=== PATIENT | female | born 1995 | race Caucasian/White ===

== ENCOUNTER 2016-09-20 09:45 | Emergency (ER) | payer OTHER ==
[2016-09-20 10:08] VITALS: BP 108/60
--- NOTE | 2016-09-20 10:31 | UC ---
Preet Curtis Adam, scribed for Tyler Peralta MD on 09/20/16 at 0951 . Skin Complaint HPI - HPI Summary HPI Summary: In Room Note: Pt is a 21 year old female presenting with a diffuse rash which she believes is a reaction to a new product. She states that she used a new perfume yesterday and she also wore a new sweater yesterday (over a tank top). She presents with multiple lesions on her back and arms which are red and raised. She states that they are very itchy. Yesterday she had the lesions on her hands as well. Pt also c/o a painful brown spot on her lip yesterday. She also c/o cough. As far as PMHx, pt states that when she was a baby she had a balloon put in her lung. EMR indicates hx of multiple allergies. Positive tobacco use. Note: Vital signs stable, not hypertensive. Pulse ox 97. Smoker. Visit history non-contributory to current complaint. PMHx of exercise-induced asthma and multiple allergies. Nurse's Note: Pt states that yesterday she put on new wool sweater and new perfume and then broke out in rash throughout entire body. Pt also complains of brown spot on lip that is causing her pain. - History of Current Complaint Stated Complaint: RASH Hx Obtained From: Patient Hx Last Menstrual Period: 2 WEEKS AGO Onset/Duration: Sudden Onset, Lasting Days, Still Present Timing: Constant Onset Severity: Moderate Current Severity: Mild Location: Diffuse Character: Pruritus, Redness, Raised Aggravating: Nothing Alleviating: Nothing Associated Signs & Symptoms: Positive: Cough Related History: Other: - Possible reaction to new wool sweater and/or new perfume - Allergy/Home Medications Allergies/Adverse Reactions: Allergies Allergy/AdvReac Type Severity Reaction Status Date / Time Naproxen Allergy Severe Hives Verified 11/12/15 16:01 Acetaminophen Allergy Shortness Verified 09/20/16 10:00 of Breath Apple Allergy Anaphylatic Verified 09/20/16 10:00 Shock Pineapple Allergy Hives Verified 11/12/15 16:01 bee stings Allergy Swelling Uncoded 04/15/14 14:05 lactose Allergy GI Upset Uncoded 09/13/15 07:56 oranges Allergy Blisters Uncoded 09/13/15 07:56 Home Medications: Home Medications Ibuprofen [Advil] 600 mg PO DAILY PRN 09/20/16 [History Confirmed 09/20/16] Review of Systems Constitutional: Negative Skin: Other - Red lesions on back and arms, brown spot on lip Respiratory: Cough All Other Systems Reviewed And Are Negative: Yes PMH/Surg Hx/FS Hx/Imm Hx - Surgical History Surgical History: Yes Surgery Procedure, Year, and Place: ear tubes. states "balloon placed in LEFT lung as baby" - Family History Known Family History: Positive: Hypertension - Grandmother, Diabetes - Grandmother - Social History Occupation: Unemployed Lives: With Family - Mother Alcohol Use: None Substance Use Type: None Smoking Status (MU): Current Every Day Smoker Type: Cigarettes Amount Used/How Often: 1/2 PPD - Immunization History Vaccination Up to Date: Yes Physical Exam Triage Information Reviewed: Yes Vital Signs: Initial Vital Signs Temp 98.9 F 09/20/16 10:02 Pulse 86 09/20/16 10:02 Resp 14 09/20/16 10:02 BP 108/60 09/20/16 10:02 Pulse Ox 97 09/20/16 10:02 - Additional Comments Appearance: well-appearing, no pain distress, well-nourished Eyes: Conjunctiva clear ENT: Hearing grossly normal, pharynx normal, TMs normal, (-) muffled/hoarse voice. The throat is open. Neck: Supple, no lymphadenopathy. There are no swollen glands in the cervical area or the epitrochlear area. Resp: Chest non-tender, lungs clear, normal breath sounds, no respiratory distress Cardio: RRR, No murmur Abd: nontender, no organomegaly, soft Bowel: Present Musc: Strength intact, CARRION Neuro: Alert Psych: Age appropriate behavior Skin: SCATTERED 1-2 MM ERYTHEMATOUS RAISED PUNCTATE LESIONS. THERE ARE APPROXIMATELY 8 ON THE BACK AND SCATTERED ON THE ARMS. There is no rash noted between the fingers. THERE IS ALSO A RESOLVING DISCOLORED AREA ON THE RIGHT SIDE OF THE UPPER LIP THAT DOES NOT GO INTO THE MUCOSA. There is no swelling of the tongue. Course/Dx - Course Course Of Treatment: Medications have been included in the original chart and reviewed. Normal BP reading and no follow-up instructions required. - Diagnoses Provider Diagnoses: Scabies, possible contact dermatitis Discharge - Discharge Plan Condition: Stable Disposition: HOME Patient Education Materials: Scabies (ED), Contact Dermatitis (ED) Forms: *Work Release Referrals: Denisse Blanchard MD [Primary Care Provider] - Additional Instructions: Thank you for helping us improve patient care by filling out the [facility]. WE DISCUSSED: See instructions; wash all clothes in contact with you over the past few days and your sheets. Go to drugstore for over the counter scabies medication. It's called permethrin. Use as directed. Use it again in one week. Also hydrocortisone. Apply to any itching red dots. Recheck if you are not better in 2 weeks. If you no longer itch and have no rash, you can return to work in 2 days. The documentation as recorded by the Preet rutherford Adam accurately reflects the service I personally performed and the decisions made by me, Tyler Peralta MD.
== END 2016-09-20 10:36 | disposition home or self-care (01) ==
LOC: UCEAST 09:45
DX: B86 Scabies (principal); Z88.6 Allergy status to analgesic agent; Z91.030 Bee allergy status; Z91.011 Allergy to milk products; F17.210 Nicotine dependence, cigarettes, uncomplicated
CPT/HCPCS: 99211; G0463

== ENCOUNTER 2017-01-29 11:36 | Emergency (ER) | payer SELFPAY ==
--- NOTE | 2017-01-29 12:21 | UC ---
Back Pain HPI - HPI Summary HPI Summary: 21 y/o female presents to the urgent care c/o RT sided lower back pain that started yesterday when she woke up. Pt states pain is 8/10 radiates up her back and down her RT leg. Pt Denies any injury or trauma to her back. Denies numbness or tingling over the lower extremities, urinary or fecal incontinence , saddle anesthesia, SOB, chest pain, N/V/D. LMP: 01/27/2017 with regular menstrual cycles. - History of Current Complaint Hx Obtained From: Patient Hx Last Menstrual Period: 01/27/17 ?: No Onset/Duration: Gradual Onset, Lasting Days - 1 day, Still Present Timing: Constant Severity Initially: Mild Severity Currently: Moderate Pain Intensity: 8 Pain Scale Used: 0-10 Numeric Back Pain: Is Discrete @ - RT lower back Character: Spasmodic Aggravating: Bending, Walking Alleviating: Rest Associated Signs And Symptoms: Positive: Pain with Weight Bearing. Negative: Swelling, Redness, Fever, Numbness, Tingling, Flank Pain, Bladder Incontinence, Bowel Incontinence - Risk Factors AAA Risk Factors: Negative TAD Risk Factors: Negative Cauda Equina Risk Factors: Negative Epidural Abscess Risk Factors: Negative <Lynn Perry - Last Filed: 01/30/17 21:45> <Tyler Peralta - Last Filed: 01/31/17 06:58> - History of Current Complaint Chief Complaint: UCBackPain Stated Complaint: BACK PAIN Time Seen by Provider: 01/29/17 12:19 - Allergies/Home Medications Allergies/Adverse Reactions: Allergies Allergy/AdvReac Type Severity Reaction Status Date / Time Naproxen Allergy Severe Hives Verified 01/29/17 13:19 Acetaminophen Allergy Shortness Verified 01/29/17 13:19 of Breath Apple Allergy Anaphylatic Verified 01/29/17 13:19 Shock Penicillins Allergy Rash Verified 01/29/17 13:19 Pineapple Allergy Hives Verified 01/29/17 13:19 bee stings Allergy Swelling Uncoded 01/29/17 13:19 lactose Allergy GI Upset Uncoded 01/29/17 13:19 oranges Allergy Blisters Uncoded 01/29/17 13:19 PMH/Surg Hx/FS Hx/Imm Hx Previously Healthy: Yes Respiratory History: Asthma - Surgical History Surgical History: Yes Surgery Procedure, Year, and Place: ear tubes. states "balloon placed in LEFT lung as baby" - Family History Known Family History: Positive: None, Hypertension - Grandmother, Diabetes - Grandmother - Social History Occupation: Student Lives: With Family Alcohol Use: None Substance Use Type: None Smoking Status (MU): Heavy Every Day Tobacco Smoker Type: Cigarettes Amount Used/How Often: 1/2 PPD Length of Time of Smoking/Using Tobacco: started at age 15 Household Exposure Type: Cigarettes - Immunization History Vaccination Up to Date: Yes <Lynn Perry - Last Filed: 01/30/17 21:45> Review of Systems Constitutional: Negative Skin: Rash - RT lower back mole painful Eyes: Negative ENT: Negative Respiratory: Negative Cardiovascular: Negative Gastrointestinal: Negative Genitourinary: Negative Motor: Negative Neurovascular: Negative Musculoskeletal: Other: - RT side lower back pain Neurological: Negative Psychological: Negative Is Patient Immunocompromised?: Yes All Other Systems Reviewed And Are Negative: Yes <Lynn Perry - Last Filed: 01/30/17 21:45> Physical Exam Triage Information Reviewed: Yes Appearance: Well-Appearing, No Pain Distress, Well-Nourished, Thin Vital Signs: Initial Vital Signs Temp 98.7 F 01/29/17 11:42 Pulse 88 01/29/17 11:42 Resp 16 01/29/17 11:42 BP 106/71 01/29/17 11:42 Pulse Ox 100 01/29/17 11:42 Vital Signs Reviewed: Yes Eye Exam: Normal Eyes: Positive: Conjunctiva Clear - PERRLA, EOMI ENT Exam: Normal ENT: Positive: Normal ENT inspection, Hearing grossly normal, Pharynx normal, TMs normal Neck exam: Normal Neck: Positive: Supple, Nontender, No Lymphadenopathy Respiratory Exam: Normal Respiratory: Positive: Chest non-tender, Lungs clear, Normal breath sounds, No respiratory distress Cardiovascular Exam: Normal Cardiovascular: Positive: RRR, No Murmur, Pulses Normal, Brisk Capillary Refill Abdominal Exam: Normal Abdomen Description: Positive: Nontender, No Organomegaly, Soft. Negative: CVA Tenderness (R), CVA Tenderness (L) Bowel Sounds: Positive: Present Musculoskeletal: Positive: Strength Intact, Other: - BACK: Patient walked into the urgent care room with symmetric ambulation, No signs of limping, antalgic, able to bear weight. No signs of trauma, No masses palpated. No tendeness on palpation. Mild RT side paraspinal muscle tenderness at the level of L4-L5 No CVAT, no flank ecchymosis . No sacroiliac notch tenderness, No saddle anesthesia.ROM: limited flexion/ extension/ lateral bending and rotation due to pain, Straight Leg Raise: negative. Patellar reflexes: brisk, symmetric Muscle strength lower extremities. Dorsiflexion/ plantar flexion of ankles. Heel/ toe walk. Lower extremities: Femoral, popliteal, posterior tibial, and dorsalis pedis pulses WNL. Neurological Exam: Normal Psychological Exam: Normal Skin: Positive: rashes - RT side of lower back with a irregular mold with surrounding erythema and mild tenderness on palpation, mild scoriation observed. no swelling or discharge observed. Mold black-brown in color, sicae 0.4mm in size. <Lynn Perry - Last Filed: 01/30/17 21:45> Vital Signs: Initial Vital Signs Temp 98.7 F 01/29/17 11:42 Pulse 88 01/29/17 11:42 Resp 16 01/29/17 11:42 BP 106/71 01/29/17 11:42 Pulse Ox 100 01/29/17 11:42 <Tyler Peralta - Last Filed: 01/31/17 06:58> Back Pain Course/Dx - Course Course Of Treatment: 21 y/o female presents to the urgent care c/o RT sided lower back pain that started yesterday when she woke up. Pt states pain is 8/ 10 radiates up her back and down her RT leg. Pt Denies any injury or trauma to her back. Denies numbness or tingling over the lower extremities, urinary or fecal incontinence , saddle anesthesia, SOB, chest pain, N/V/D. LMP: 01/27/2017 with regular menstrual cycles. Hx obtained. Lubosacral X-ray ordered. Immpression: no bbone abnormality, mild levoscoliosis. Pt given ibuprofen 800mg PO at the clinic for pain. Pt felt better and pain decrease. Pt with back spasm probably due to scoliosis. Pt Rx Flexeril PO and Ibuprofen to alleviate symptoms. Pt with irregular mole co-infected. Pt Rx Bacitracin topical ointment and advise to f/u with podiatric aide as soon as possible for further treatment. D/C instructions explained. Pt understood and agreed and left the clinic ambulating - Differential Dx/Diagnosis Differential Diagnosis/HQI/PQRI: Fracture, Herniated Disc, Strain, Sprain, Other - scoliosis, muscle spasm, Provider Diagnoses: 1- Lower back pain with back spasm. 2- mild levoscoliosis. 3- rash <Lynn Perry - Last Filed: 01/30/17 21:45> Discharge <Lynn Perry - Last Filed: 01/30/17 21:45> <Tyler Peralta - Last Filed: 01/31/17 06:58> - Discharge Plan Condition: Stable Disposition: HOME Prescriptions: RX: Bacitracin OINTMENT* 1 applic TOPICAL TID #1 tube Cyclobenzaprine TAB* [Flexeril 10 MG TAB*] 10 mg PO BID PRN #15 tab PRN Reason: Spasms - Back RX: Ibuprofen TAB* [Motrin TAB* 800 MG] 800 mg PO Q6H #20 tab Patient Education Materials: Acute Rash (ED), Acute Low Back Pain (ED) Referrals: Denisse Blanchard MD [Primary Care Provider] - 7 Days Todd Vasuqes MD [Medical Doctor] - 1 Week Michael Stanford MD [Medical Doctor] - 1 Week Additional Instructions: 1-Please take medications after meals as directed to alleviate pain and swelling. Avoid driving if medication is making you dizzy 2-Please apply topical antibiotic aroun the infected mole and f/u Customer Program Specialist referral for further evaluation and treatment 3- Please f/u with Orthopedic or your PCP in 1 week is not improvement of symptoms of your lower back pain for further evaluation and treatment.
[2017-01-29] MEDS ORDERED: Ibuprofen TAB* 400 MG PO ONE (12:41)
--- NOTE | 2017-01-29 13:07 | RAD ---
Indication: Low back pain. 5 views of lumbar spine demonstrate vertebral bodies to be normal in height. Mild levoscoliosis centered at L4 is noted. Disc spaces are well-preserved. No fracture is noted. IMPRESSION: Mild levoscoliosis without evidence of fracture.
[2017-01-29 13:43] VITALS: BP 116/62
== END 2017-01-29 13:57 | disposition home or self-care (01) ==
LOC: UCEAST 11:36
DX: M62.830 Muscle spasm of back (principal); M41.80 Other forms of scoliosis, site unspecified; R21 Rash and other nonspecific skin eruption
CPT/HCPCS: 72100; 99212; A9270-GY; G0463

== ENCOUNTER 2017-05-19 15:32 | Emergency (ER) | payer SELFPAY ==
[2017-05-19 15:55] VITALS: BP 105/55
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
== END 2017-05-19 16:19 ==
LOC: UCEAST 15:32
DX: Z72.0 Tobacco use (principal); Z53.20 Procedure and treatment not carried out because of patient's decision for unspecified reasons; R51 Headache; S13.4XXA Sprain of ligaments of cervical spine, initial encounter; V49.88XA Car occupant (driver) (passenger) injured in other specified transport accidents, initial encounter; Y93.89 Activity, other specified; Y92.410 Unspecified street and highway as the place of occurrence of the external cause; Y99.9 Unspecified external cause status; R11.0 Nausea
CPT/HCPCS: 99211; G0463

== ENCOUNTER 2017-05-19 17:12 | Emergency (ER) | payer SELFPAY ==
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
[2017-05-19 19:35] VITALS: BP 91/51
== END 2017-05-19 19:34 | disposition home or self-care (01) ==
LOC: ED 17:12
DX: M54.2 Cervicalgia (principal); S09.90XA Unspecified injury of head, initial encounter; V43.62XA Car passenger injured in collision with other type car in traffic accident, initial encounter; Y92.9 Unspecified place or not applicable; J45.990 Exercise induced bronchospasm; F17.210 Nicotine dependence, cigarettes, uncomplicated
CPT/HCPCS: 70450; 72125; 99282

== ENCOUNTER → 2017-06-29 19:50 | Emergency (ER) | payer SELFPAY ==
[~2017-06-29 19:50] MED LIST: Oseltamivir CAP* 75 MG CAP PO ONE
[2017-06-29 21:55] VITALS: BP 97/58
--- NOTE | 2017-06-29 21:58 | UC ---
FLU HPI - HPI Summary HPI Summary: Pt presents with headache, body aches, fatigue, nausea, and sore throat since last night. She has had many family members sick with the flu and would like tamiflu. She has not taken anything for her symptoms. She denies fever, chills, SOB, chest pain, abdominal pain. She is still smoking daily - History of Current Complaint Chief Complaint: UCRespiratory Stated Complaint: sore throat, ear ache, and vomiting Time Seen by Provider: 06/29/17 21:57 Hx Obtained From: Patient Hx Last Menstrual Period: 06/13/17 Onset/Duration: Gradual Onset Severity Currently: Moderate Severity Initially: Moderate Pain Intensity: 6 Pain Scale Used: 0-10 Numeric - Allergy/Home Medications Allergies/Adverse Reactions: Allergies Allergy/AdvReac Type Severity Reaction Status Date / Time acetaminophen Allergy Severe Shortness Verified 06/29/17 21:56 of Breath Penicillins Allergy Severe Rash Verified 06/29/17 21:56 pineapple Allergy Severe Hives Verified 06/29/17 21:56 bee stings Allergy Swelling Uncoded 06/29/17 21:56 lactose Allergy GI Upset Uncoded 06/29/17 21:56 oranges Allergy Blisters Uncoded 06/29/17 21:56 PMH/Surg Hx/FS Hx/Imm Hx Previously Healthy: Yes Other History Of: Negative For: Anticoagulant Therapy - Surgical History Surgical History: Yes Surgery Procedure, Year, and Place: ear tubes. states "balloon placed in LEFT lung as baby" - Family History Known Family History: Positive: None, Hypertension - Grandmother, Diabetes - Grandmother - Social History Occupation: Employed Full-time Lives: With Family Alcohol Use: None Substance Use Type: None Smoking Status (MU): Current Every Day Smoker Type: Cigarettes Amount Used/How Often: 6 CIG/DAY Length of Time of Smoking/Using Tobacco: started at age 15 Household Exposure Type: Cigarettes Cessation Counseling: Counseled 3+Min - 10 Min - Immunization History Vaccination Up to Date: Yes Review of Systems Constitutional: Fatigue, Other - Body aches Skin: Negative Eyes: Negative ENT: Sore Throat Respiratory: Cough Cardiovascular: Negative Gastrointestinal: Nausea Neurovascular: Negative Musculoskeletal: Negative Neurological: Headache Psychological: Negative All Other Systems Reviewed And Are Negative: Yes Physical Exam Triage Information Reviewed: Yes Appearance: Well-Appearing, No Pain Distress, Well-Nourished Vital Signs: Initial Vital Signs Temp 98.9 F 06/29/17 21:51 Pulse 85 06/29/17 21:51 Resp 16 06/29/17 21:51 BP 97/58 06/29/17 21:51 Pulse Ox 98 06/29/17 21:51 Vital Signs Reviewed: Yes Eyes: Positive: Conjunctiva Clear, Other: - EOMI. Negative: Conjunctiva Inflamed, Discharge ENT: Positive: Hearing grossly normal, Pharynx normal, TMs normal, Uvula midline. Negative: Pharyngeal erythema, Nasal congestion, Nasal drainage, TM bulging, TM dull, TM red, Tonsillar swelling, Tonsillar exudate, Hoarse voice, Sinus tenderness Neck: Positive: Supple, Nontender, No Lymphadenopathy Respiratory: Positive: Chest non-tender, Lungs clear, Normal breath sounds, No respiratory distress, No accessory muscle use Cardiovascular: Positive: RRR, No Murmur, Pulses Normal Abdomen Description: Positive: Nontender, No Organomegaly, Soft. Negative: CVA Tenderness (R), CVA Tenderness (L), Distended, Guarding, McBurney's Point Tenderness Bowel Sounds: Positive: Present Neurological: Positive: Alert Psychological: Positive: Age Appropriate Behavior Skin: Negative: rashes Flu Course/Dx - Course Course Of Treatment: Suspect influenza given hx and sick contacts. She is requesting tamiflu. - Differential Dx/Diagnosis Provider Diagnoses: Influenza Discharge - Discharge Plan Condition: Stable Disposition: HOME Prescriptions: Oseltamivir CAP* [Tamiflu CAP*] 75 mg PO BID #10 cap Patient Education Materials: Influenza (ED) Forms: *Work Release Referrals: No Primary Care Phys,NOPCP [Primary Care Provider] - Additional Instructions: If you develop a fever, shortness of breath, chest pain, new or worsening symptoms - please call your PCP or go to the ED.
== END | disposition home or self-care (01) ==
LOC: UCEAST 19:50
DX: J11.1 Influenza due to unidentified influenza virus with other respiratory manifestations (principal); Z20.828 Contact with and (suspected) exposure to other viral communicable diseases; F17.210 Nicotine dependence, cigarettes, uncomplicated
CPT/HCPCS: A9270-GY

== ENCOUNTER 2018-03-03 17:20 | Emergency (ER) | payer OTHER ==
[2018-03-03 17:44] VITALS: BP 108/67
--- NOTE | 2018-03-03 17:50 | UC ---
Hand/Wrist HPI - HPI Summary HPI Summary: 22 yo female presents with left wrist pain. She tells me that earlier today she was walking her dog when her dog pulled on the leash and pt tripped. She fell forward onto her left wrist. She has had pain and decreased ROM since. She is concerned because she fractured this wrist about a year ago. Has some tingling and "shocks" going into her 5th and 4th fingers and extending to her elbow. She has not taken anything OTC for her discomfort. - History Of Current Complaint Chief Complaint: UCUpperExtremity Stated Complaint: WRIST INJURY Time Seen by Provider: 03/03/18 17:50 Hx Obtained From: Patient Hx Last Menstrual Period: 02/18/18 Onset/Duration: Sudden Onset Severity Initially: Moderate Severity Currently: Moderate Pain Intensity: 7 Pain Scale Used: 0-10 Numeric - Allergies/Home Medications Allergies/Adverse Reactions: Allergies Allergy/AdvReac Type Severity Reaction Status Date / Time Penicillins Allergy Severe Rash Verified 03/03/18 17:44 pineapple Allergy Severe Hives Verified 03/03/18 17:44 naproxen Allergy Hives Verified 03/03/18 17:44 bee stings Allergy Swelling Uncoded 03/03/18 17:44 lactose Allergy GI Upset Uncoded 03/03/18 17:44 oranges Allergy Blisters Uncoded 03/03/18 17:44 Home Medications: Home Medications Calcium Carbonate [Calcium] 500 mg PO 03/03/18 [History Confirmed 03/03/18] Ibuprofen TAB* [Motrin TAB* 600 MG] 1,200 mg PO ONCE PRN 03/03/18 [History Confirmed 03/03/18] Vitamin TAB* 1 tab PO DAILY 03/03/18 [History Confirmed 03/03/18] Sleeping Med* 10 mg PO BEDTIME PRN 03/03/18 [History Confirmed 03/03/18] Venlafaxine CAP (NF) [Effexor CAP (NF)] 03/03/18 [History] hydrOXYzine HCL TAB* [Atarax 10 MG TAB*] 5 mg PO PRN 03/03/18 [History] PMH/Surg Hx/FS Hx/Imm Hx Psychological History: Anxiety, Depression Other History Of: Negative For: Anticoagulant Therapy - Surgical History Surgical History: Yes Surgery Procedure, Year, and Place: RIGHT BREAT BIOPSY, ear tubes,. states "balloon placed in LEFT lung as baby", WISDOM TEETH EXTRACTION, OTHER DENTAL EXTRACTION - Family History Known Family History: Positive: Hypertension - Grandmother, Diabetes - Grandmother - Social History Occupation: Employed Full-time Lives: With Family Alcohol Use: None Substance Use Type: None Smoking Status (MU): Current Every Day Smoker Type: Cigarettes Amount Used/How Often: 10 CIG/DAY Length of Time of Smoking/Using Tobacco: started at age 15 Household Exposure Type: Cigarettes - Immunization History Vaccination Up to Date: Yes Review of Systems Constitutional: Negative Skin: Negative Respiratory: Negative Cardiovascular: Negative Neurovascular: Negative Musculoskeletal: Other: - Left wrist pain Neurological: Numbness - Left 4th and 5th digits Psychological: Negative All Other Systems Reviewed And Are Negative: Yes Physical Exam - Summary Physical Exam Summary: GENERAL: NAD. WDWN. No pain distress. SKIN: No rashes, sores, lesions, or open wounds. CHEST: No accessory muscle use. Breathing comfortably and in no distress. CV: Pulses intact radial and ulnar. Cap refill <2seconds MSK: LEFT WRIST: TTP about ulnar styloid. Pain with flexion and extension. Intact call center agent strength. No edema or obvious bony deformities. No snuffbox tenderness. NEURO: Alert. Sensations intact hand and all fingers. PSYCH: Age appropriate behavior. Triage Information Reviewed: Yes Vital Signs: Initial Vital Signs Temp 98.6 F 03/03/18 17:38 Pulse 94 03/03/18 17:38 Resp 16 03/03/18 17:38 BP 108/67 03/03/18 17:38 Pulse Ox 99 03/03/18 17:38 Vital Signs Reviewed: Yes Hand/Wrist Course/Dx - Course Course Of Treatment: XR: IMPRESSION: Normal radiograph of the left wrist. If the patient's symptoms persist, follow-up imaging is recommended. Suspect sprain vs contusion. Pt was placed in a cock-up splint and advised to RICE and f /u with Orthopedics if her pain persists. - Differential Dx/Diagnosis Provider Diagnoses: Left wrist sprain Discharge - Sign-Out/Discharge Documenting (check all that apply): Patient Departure All imaging exams completed and their final reports reviewed: Yes - Discharge Plan Condition: Stable Disposition: HOME Patient Education Materials: Wrist Sprain (ED) Referrals: Sophia Pollard [Primary Care Provider] - Michael Reno MD [Medical Doctor] - If Needed Additional Instructions: If you develop a fever, shortness of breath, chest pain, new or worsening symptoms - please call your PCP or go to the ED. 1) Rest and apply ice to your wrist 2) Use the cock-up splint for pain reduction 3) If your symptoms do not improve please call Orthopedics at the number below to schedule a follow up appointment - Billing Disposition and Condition Condition: STABLE Disposition: Home
--- NOTE | 2018-03-03 18:37 | RAD ---
INDICATION: Distal ulnar sided left wrist pain after a fall. Requisition notes "history of fracture x2" COMPARISON: None. TECHNIQUE: 3 views left wrist. REPORT: The visualized bones are properly aligned and well corticated. The joint spaces are normal.There is no fracture, dislocation or other focal osseous abnormality. IMPRESSION: Normal radiograph of the left wrist. If the patient's symptoms persist, follow-up imaging is recommended.
== END 2018-03-03 18:25 | disposition home or self-care (01) ==
LOC: UCEAST 17:20
DX: S63.502A Unspecified sprain of left wrist, initial encounter (principal); W01.0XXA Fall on same level from slipping, tripping and stumbling without subsequent striking against object, initial encounter; Y93.K1 Activity, walking an animal; Y92.9 Unspecified place or not applicable; F41.9 Anxiety disorder, unspecified; F32.9 Major depressive disorder, single episode, unspecified; Z88.6 Allergy status to analgesic agent; Z91.030 Bee allergy status; Z88.0 Allergy status to penicillin; Z91.018 Allergy to other foods; F17.210 Nicotine dependence, cigarettes, uncomplicated
CPT/HCPCS: 99213; G0463

== ENCOUNTER 2018-11-15 16:03 | Emergency (ER) | payer OTHER ==
[2018-11-15 16:20] VITALS: BP 107/66
--- NOTE | 2018-11-15 16:48 | UC ---
Upper Extremity HPI - HPI Summary HPI Summary: 23-year-old female presents with complaints of a tender, swollen "lump" to her right forearm. States she awoke yesterday with the pain and swelling. States it is causing occasional numbness and tingling in her hands and fingers. Patient states she is concerned because her aunt has a history of unprovoked blood clots. Denies injury, fever, chills, erythema, ecchymosis, chest pain, shortness of breath, or extremity weakness. - History of Current Complaint Chief Complaint: Maldonado Stated Complaint: R ARM PAIN Time Seen by Provider: 11/15/18 16:44 Hx Obtained From: Patient Hx Last Menstrual Period: 11/13/18 Pain Intensity: 9 - Allergies/Home Medications Allergies/Adverse Reactions: Allergies Allergy/AdvReac Type Severity Reaction Status Date / Time Penicillins Allergy Severe Rash Verified 11/15/18 16:21 naproxen Allergy Hives Verified 11/15/18 16:21 bee stings Allergy Swelling Uncoded 11/15/18 16:21 lactose Allergy GI Upset Uncoded 11/15/18 16:21 oranges Allergy Blisters Uncoded 11/15/18 16:21 PMH/Surg Hx/FS Hx/Imm Hx Previously Healthy: Yes - Denies significant PMH - Surgical History Surgical History: Yes Surgery Procedure, Year, and Place: RIGHT BREAT BIOPSY, ear tubes,. states "balloon placed in LEFT lung as baby", WISDOM TEETH EXTRACTION, OTHER DENTAL EXTRACTION - Family History Known Family History: Positive: Hypertension - Grandmother, Diabetes - Grandmother - Social History Occupation: Unemployed Lives: Alone Alcohol Use: None Substance Use Type: None Smoking Status (MU): Light Every Day Tobacco Smoker Type: Cigarettes Amount Used/How Often: 10 CIG/DAY Length of Time of Smoking/Using Tobacco: started at age 15 Household Exposure Type: Cigarettes - Immunization History Vaccination Up to Date: Yes Review of Systems All Other Systems Reviewed And Are Negative: Yes Constitutional: Negative: Fever, Chills Skin: Negative: Rash, Bruising Respiratory: Negative: Shortness Of Breath, Cough Cardiovascular: Negative: Palpitations, Chest Pain Gastrointestinal: Positive: Negative Genitourinary: Positive: Negative Musculoskeletal: Positive: Other: - See HPI Neurological: Positive: Paresthesia Is Patient Immunocompromised?: No Physical Exam - Summary Physical Exam Summary: GENERAL APPEARANCE: Well developed, well nourished, alert and cooperative, and appears to be in no acute distress. CARDIAC: Normal S1 and S2. No S3, S4 or murmurs. Rhythm is regular. There is no peripheral edema, cyanosis or pallor. Extremities are warm and well perfused. Capillary refill is less than 2 seconds. Peripheral pulses intact. LUNGS: Clear to auscultation without rales, rhonchi, wheezing or diminished breath sounds. ABDOMEN: Positive bowel sounds. Soft, nondistended, nontender. No guarding or rebound. No masses or hepatosplenomegally. MUSKULOSKELETAL: ROM intact to all extremities. No joint erythema or tenderness. Normal muscular development. EXTREMITIES: Tenderness with palpation to the proximal, anterior, ulnar forearm with minimal edema. No erythema, ecchymosis, or lesions. Pulses intact. Sensation intact. Normal senior licensing manager strength. SKIN: Skin normal color, texture and turgor with no lesions or eruptions. Triage Information Reviewed: Yes Vital Signs: Initial Vital Signs Temp 98.9 F 11/15/18 16:15 Pulse 80 11/15/18 16:15 Resp 12 11/15/18 16:15 BP 107/66 11/15/18 16:15 Pulse Ox 99 11/15/18 16:15 Vital Signs Reviewed: Yes Images Front/Back of Body, Lg ([place]): 1 - mild swelling and tenderness. no overlying erthyema Diagnostics - Radiology No standard instances Radiology Interpretation Completed By: Radiologist Summary of Radiographic Findings: no DVT Upper Extremity Course/Dx - Course Course Of Treatment: 23-year-old female presents with complaints of a tender, swollen "lump" to her right forearm. States she awoke yesterday with the pain and swelling. States it is causing occasional numbness and tingling in her hands and fingers. Patient states she is concerned because her aunt has a history of unprovoked blood clots. Denies injury, fever, chills, erythema, ecchymosis, chest pain, shortness of breath, or extremity weakness. Afebrile. Vital signs stable. Patient had tenderness with palpation to the proximal, anterior, right ulnar forearm with minimal edema. No erythema, ecchymosis, or lesions. Pulses intact. Sensation intact. Normal senior licensing manager strength. Patient was signed out to Dr. Galarza pending a venous ultrasound of her right upper extremity. - Differential Dx/Diagnosis Differential Diagnosis/HQI/PQRI: Contusion, Hematoma, Other - thrombophlebitis, DVT Provider Diagnosis: Pain and swelling of right upper extremity Discharge - Sign-Out/Discharge Documenting (check all that apply): Patient Departure, Sign-Out Patient Signing out patient TO: Jim Galarza - U/S neg All imaging exams completed and their final reports reviewed: Yes - Discharge Plan Condition: Stable Disposition: HOME Referrals: Lam Grier DO [Primary Care Provider] - 2 Days Additional Instructions: The ultrasound showed no blood clot I am unsure of the cause of your swelling You may need further imaging see you MD in 2 days as planned - Billing Disposition and Condition Condition: STABLE Disposition: Home
== END 2018-11-15 19:24 | disposition home or self-care (01) ==
LOC: UCEAST 16:03
DX: M79.601 Pain in right arm (principal); M79.89 Other specified soft tissue disorders; F17.210 Nicotine dependence, cigarettes, uncomplicated
CPT/HCPCS: 99211; G0463

== ENCOUNTER → 2019-02-10 01:35 | Emergency (ER) | payer OTHER ==
[~2019-02-10 01:35] MED LIST changes: +Iohexol 300* (CONTRAST) 10 ML SDV IV ONE; +Ketorolac INJ* 30 MG/ML 1 ML VIAL IV PUSH ONE; +Ondansetron INJ* 2 MG/ML VIAL IV ONE; -Oseltamivir CAP* 75 MG CAP PO ONE
[2019-02-10 02:01] LABS: ABS Eosinophils 0.6 10^3/ul (0-0.6); ABS Lymphocytes 2.1 10^3/ul (1.0-4.8); ABS Monocytes 0.5 10^3/ul (0-0.8); ABS Neutrophils 4.1 10^3/ul (1.5-7.7); Eosinophil % 8.3 %; Hematocrit 46 % (35-47); Mean Corpuscular HGB Conc 35 g/dL (31-36); Mean Corpuscular Hemoglobin 31 pg (27-31); Mean Corpuscular Volume 91 fL (80-97); Nucleated Red Blood Cells % 0.1; Platelet Count 227 10^3/uL (150-450); Red Blood Count 5.08 10^6 /uL (3.70-4.87); Red Cell Distribution Width 12 % (10-15); White Blood Count 7.4 10^3/uL (3.5-10.8)
--- NOTE | 2019-02-10 02:17 | ED ---
Abdominal Pain/Female - HPI Summary HPI Summary: 23 year old F brought in by EMS to [facility] accompanied by complains of RLQ abdominal pain rated 8/10 in severity with associated nausea, vomiting, and fever 100.F that start 1 hour ago while trying to fall sleep. Patient denies dysuria, hematuria, vaginal bleeding/discharge. Symptoms aggravated by nothing. Symptoms alleviated by nothing. Patient states that she had a similar episode 5 years ago, was seen at [facility], and was discharged home. LNMP ended yesterday 02/09/19. Patient has hx ovarian cysts, hx PCOS. Smokes cigarettes, drinks alcohol, no drugs. Medications reviewed. Allergies noted. - History of Current Complaint Chief Complaint: EDAbdPain Stated Complaint: ABD PAIN PER EMS Time Seen by Provider: 02/10/19 02:09 Hx Obtained From: Patient Hx Last Menstrual Period: 02/09/19 Onset/Duration: Lasting Hours - 1, Still Present Timing: Constant Severity Currently: Severe Pain Intensity: 8 Pain Scale Used: 0-10 Numeric Location: Discrete At: RLQ Aggravating Factor(s): Nothing Alleviating Factor(s): Nothing Associated Signs and Symptoms: Positive: Negative - dysuria, hematuria, vaginal bleeding/discharge, Other: - nausea, vomiting, and fever Allergies/Adverse Reactions: Allergies Allergy/AdvReac Type Severity Reaction Status Date / Time Penicillins Allergy Severe Rash Verified 02/10/19 03:27 bee venom protein (honey bee) Allergy Swelling Verified 02/10/19 03:27 lactose Allergy GI Upset Verified 02/10/19 03:27 naproxen Allergy Hives Verified 02/10/19 03:27 orange Allergy Blisters Verified 02/10/19 03:27 PMH/Surg Hx/FS Hx/Imm Hx Cardiovascular History: Denies: Hx Hypertension Respiratory History: Reports: Hx Asthma - Excerise Induced History: Reports: Other Problems/Disorders - hx ovarian cysts, PCOS - Surgical History Surgery Procedure, Year, and Place: RIGHT BREAT BIOPSY, ear tubes,. states "balloon placed in LEFT lung as baby", WISDOM TEETH EXTRACTION, OTHER DENTAL EXTRACTION - Immunization History Immunizations Up to Date: Yes Infectious Disease History: No Infectious Disease History: Denies: Traveled Outside the [place] in Last 30 Days - Family History Known Family History: Positive: Hypertension - Grandmother, Diabetes - Grandmother - Social History Alcohol Use: None Hx Substance Use: No Substance Use Type: Reports: None Hx Tobacco Use: Yes Smoking Status (MU): Light Every Day Tobacco Smoker Type: Cigarettes Amount Used/How Often: 10 CIG/DAY Length of Time of Smoking/Using Tobacco: started at age 15 Review of Systems Positive: Fever Positive: Abdominal Pain - RLQ, Vomiting, Nausea Genitourinary: Negative - vaginal bleeding Negative: dysuria, discharge, hematuria All Other Systems Reviewed And Are Negative: Yes Physical Exam - Summary Physical Exam Summary: Constitutional: Well-developed, Well-nourished, Alert. (-) Distressed Skin: Warm, Dry HENT: Normocephalic; Atraumatic Eyes: Conjunctiva normal Neck: Musculoskeletal ROM normal neck. (-) JVD, (-) Stridor, (-) Tracheal deviation Cardio: Rhythm regular, rate normal, Heart sounds normal; Intact distal pulses; The pedal pulses are 2+ and symmetric. Radial pulses are 2+ and symmetric. (-) Murmur Pulmonary/Chest wall: Effort normal. (-) Respiratory distress, (-) Wheezes, (-) Rales Abd: Tenderness at McBurney's point, no rebound, no guarding, negative obturator Musculoskeletal: (-) Edema Lymph: (-) Cervical adenopathy Neuro: Alert, Oriented x3 Psych: Mood and affect Normal Triage Information Reviewed: Yes Vital Signs On Initial Exam: Initial Vitals Temp Pulse Resp BP Pulse Ox 99.0 F 99 18 129/78 97 02/10/19 01:35 02/10/19 01:35 02/10/19 01:35 02/10/19 01:35 02/10/19 01:35 Vital Signs Reviewed: Yes Diagnostics - Vital Signs Vital Signs Temp Pulse Resp BP Pulse Ox 02/10/19 01:48 95 121/81 97 02/10/19 01:40 96 97 02/10/19 01:35 99.0 F 99 18 129/78 97 - Laboratory Lab Results: Lab Results 02/10/19 Range/Units 01:54 WBC 7.4 (3.5-10.8) 10^3/uL RBC 5.08 H (3.70-4.87) 10^6 /uL Hgb 16.0 (12.0-16.0) g/dL Hct 46 (35-47) % MCV 91 (80-97) fL MCH 31 (27-31) pg MCHC 35 (31-36) g/dL RDW 12 (10-15) % Plt Count 227 (150-450) 10^3/uL MPV 7.0 L (7.4-10.4) fL Neut % (Auto) 55.6 % Lymph % (Auto) 29.0 % [place] % (Auto) 6.5 % Eos % (Auto) 8.3 % Baso % (Auto) 0.6 % Absolute Neuts (auto) 4.1 (1.5-7.7) 10^3/ul Absolute Lymphs (auto) 2.1 (1.0-4.8) 10^3/ul Absolute Monos (auto) 0.5 (0-0.8) 10^3/ul Absolute Eos (auto) 0.6 (0-0.6) 10^3/ul Absolute Basos (auto) 0.0 (0-0.2) 10^3/ul Absolute Nucleated RBC 0.0 10^3/ul Nucleated RBC % 0.1 Result Diagrams: 02/10/19 01:54 02/10/19 01:54 Lab Statement: Any lab studies that have been ordered have been reviewed, and results considered in the medical decision making process. - CT CT Abd/Pel CT Interpretation Completed By: Radiologist Summary of CT Findings: Essentially negative CT abdomen/pelvis.There are no changes of appendicitis and. probable visualization of a normal appendix. ED physician has reviewed this report. - Ultrasound Transvaginal Ultrasound Interpretation Completed By: Radiologist Summary of Ultrasound Findings: 1. Trace endometrial fluid which is nonspecific. 2. Otherwise negative pelvic sonogram. The left ovary is not seen. The right ovary demonstrates normal blood flow with no torsion. ED physician has reviewed this report. Abdominal Pain Fem Course/Dx - Course Course Of Treatment: Patient is here a sudden onset right lower quadrant pain that started 1 hour prior to arrival. Patient was tender at McBurney's point and her right lower pelvis. Patient had blood performed which was grossly unremarkable. Patient is not . Patient had negative CT scan for appendicitis. Patient had negative ultrasound for torsion. - Diagnoses Provider Diagnoses: RLQ abdominal pain Discharge ED - Sign-Out/Discharge Documenting (check all that apply): Patient Departure - Discharge Patient Received Moderate/Deep Sedation with Procedure: No - Discharge Plan Condition: Stable Disposition: HOME Patient Education Materials: Abdominal Pain (ED) Referrals: Lam Grier DO [Primary Care Provider] - 1 Day Additional Instructions: Please follow up with your primary care physician. Please make all follow-ups in 1-3 days unless I advise you otherwise. PLEASE RETURN TO EMERGENCY DEPARTMENT FOR ANY NEW OR WORSENING SYMPTOMS such as worsening abdominal pain and/or vaginal bleeding. - Billing Disposition and Condition Condition: STABLE Disposition: Home - Attestation Statements Document Initiated by Marge: Yes Documenting Scribe: Hazel Fontanez Provider For Whom Marge is Documenting (Include Credential): Srini Leon MD Scribe Attestation: I, Hazel Fontanez, scribed for Srini Leon MD on 02/10/19 at 0446. Scribe Documentation Reviewed: Yes Provider Attestation: The documentation as recorded by the Hazel rutherford accurately reflects the service I personally performed and the decisions made by me, Srini Leon MD Status of Scribe Document: Viewed
[2019-02-10 02:18] LABS: Albumin 4.2 g/dL (3.2-5.2); Albumin/Globulin Ratio 1.7 (1-3); BUN/Creatinine Ratio 8.2 (8-20); C Reactive Protein 1.23 mg/L (<8.01); Calcium 9.1 mg/dL (8.6-10.3); EGFR African American 120.6 (>60); EGFR Non-African American 99.7 (>60); Globulin 2.5 g/dL (2-4); Potassium 3.7 mmol/L (3.5-5.0); Total Bilirubin 0.3 mg/dL (0.2-1.0); Total Protein 6.7 g/dL (6.4-8.9)
[2019-02-10 02:27] LABS: Urine Appearance Clear; Urine Bacteria Absent (Absent); Urine Bilirubin Negative (Negative); Urine Blood 1+ (Negative); Urine Color Straw; Urine Glucose Negative (Negative); Urine Ketones Negative (Negative); Urine Nitrite Negative (Negative); Urine Protein Negative (Negative); Urine Red Blood Cell Absent (Absent); Urine Specific Gravity 1.004 (1.010-1.030); Urine Squamous Epithelial Cell Present (Absent); Urine Urobilinogen Negative (Negative); Urine White Blood Cell Absent (Absent)
[2019-02-10 03:52] VITALS: BP 126/85
== END | disposition home or self-care (01) ==
LOC: ED 01:35
DX: R10.31 Right lower quadrant pain (principal); J45.909 Unspecified asthma, uncomplicated; F17.210 Nicotine dependence, cigarettes, uncomplicated; Z88.0 Allergy status to penicillin; Z88.8 Allergy status to other drugs, medicaments and biological substances
CPT/HCPCS: 36415; 74177; 76830; 80053; 81003; 81015; 83690; 85025; 86140; 96374; 96375; 99283; J1885; J2405; Q9967

== ENCOUNTER 2019-03-08 05:46 | Emergency (ER) | payer OTHER ==
[2019-03-08] MEDS ORDERED: NS 0.9% 1000 ML** 1,000 ML IV ONE (06:04)
--- NOTE | 2019-03-08 06:06 | ED ---
Abdominal Pain/Female - HPI Summary HPI Summary: Patient is a 23-year-old female who presents emergency department for ongoing nausea and vomiting 3 days. Patient notes she had surgery and [facility] to have an ovarian cyst removed as well as her appendix. Patient states she did well after the surgery into the last 3 days developed nausea and vomiting. Patient states she has lost weight this past week due to inability to eat. Patient states she was seen and [facility] a few days ago and discharged home. Patient presents for reevaluation given ongoing symptoms. Patient denies abdominal pain, diarrhea, fever, chest pain, shortness of breath, cough, urinary symptoms. Patient notes she had a normal bowel movement today. No significant past medical history. Symptoms are moderate in severity. No current modifying factors. - History of Current Complaint Chief Complaint: EDAbdPain Stated Complaint: NAUSEA PER EMS Time Seen by Provider: 03/08/19 05:49 Hx Obtained From: Patient Hx Last Menstrual Period: 02/09/19 Pain Intensity: 5 Allergies/Adverse Reactions: Allergies Allergy/AdvReac Type Severity Reaction Status Date / Time Penicillins Allergy Severe Rash Verified 02/10/19 03:27 bee venom protein (honey bee) Allergy Swelling Verified 02/10/19 03:27 lactose Allergy GI Upset Verified 02/10/19 03:27 naproxen Allergy Hives Verified 02/10/19 03:27 orange Allergy Blisters Verified 02/10/19 03:27 PMH/Surg Hx/FS Hx/Imm Hx Previously Healthy: Yes Endocrine/Hematology History: Denies: Hx Diabetes Cardiovascular History: Denies: Hx Hypertension Respiratory History: Reports: Hx Asthma - Excerise Induced History: Reports: Other Problems/Disorders - hx ovarian cysts, PCOS Denies: Hx Renal Disease - Surgical History Surgery Procedure, Year, and Place: RIGHT BREAT BIOPSY, ear tubes,. states "balloon placed in LEFT lung as baby", WISDOM TEETH EXTRACTION, OTHER DENTAL EXTRACTION Infectious Disease History: No Infectious Disease History: Denies: Traveled Outside the [place] in Last 30 Days - Family History Known Family History: Positive: Hypertension - Grandmother, Diabetes - Grandmother - Social History Alcohol Use: None Hx Substance Use: No Substance Use Type: Reports: None Hx Tobacco Use: Yes Smoking Status (MU): Light Every Day Tobacco Smoker Type: Cigarettes Amount Used/How Often: 10 CIG/DAY Length of Time of Smoking/Using Tobacco: started at age 15 Review of Systems Constitutional: Negative Negative: Fever Cardiovascular: Negative Negative: Chest Pain Respiratory: Negative Negative: Shortness Of Breath Positive: Vomiting, Nausea. Negative: Abdominal Pain, Diarrhea Genitourinary: Negative Negative: dysuria Neurological: Negative All Other Systems Reviewed And Are Negative: Yes Physical Exam Triage Information Reviewed: Yes Vital Signs On Initial Exam: Initial Vitals Pulse BP Pulse Ox 99 118/73 96 03/08/19 05:48 03/08/19 05:48 03/08/19 05:48 Vital Signs Reviewed: Yes Appearance: Positive: Well-Appearing - Patient sitting up in bed in no acute distress. Very talkative., Thin Skin: Positive: Warm, Dry Head/Face: Positive: Normal Head/Face Inspection Eyes: Positive: Normal, EOMI Neck: Positive: Supple Respiratory/Lung Sounds: Positive: Clear to Auscultation, Breath Sounds Present Cardiovascular: Positive: Normal, RRR Abdomen Description: Positive: Other: - Abdomen is soft. 3 small healing incisions without erythema or edema. Abdomen is nontender to palpation. Small amount of tenderness over the superior umbilicus incision with hardening of the skin, suspect seroma versus scar tissue................... Negative: CVA Tenderness (R), CVA Tenderness (L) Neurological: Positive: Normal, CN Intact II-III Psychiatric: Positive: Affect/Mood Appropriate Procedures - Sedation Patient Received Moderate/Deep Sedation with Procedure: No Diagnostics - Vital Signs Vital Signs Temp Pulse Resp BP Pulse Ox 03/08/19 06:00 92 97 03/08/19 05:50 99.0 F 100 16 118/73 97 03/08/19 05:48 99 118/73 96 - Laboratory Result Diagrams: 03/08/19 06:15 03/08/19 06:15 Lab Statement: Any lab studies that have been ordered have been reviewed, and results considered in the medical decision making process. Abdominal Pain Fem Course/Dx - Course Course Of Treatment: Pt. with N/V. Afebrile. Benign abd. exam. Pt. given IV fluids and zofran. Labs are unremarkable including normal CBC and negative CRP. U/A negative for infection. Records obtained from [facility]. Pt. seen their ED and had negative abd. ct. On re-exam pt. has tolerating POs and has had no vomiting in ED. Will dc home. Pt. to call her sx today for a close f.u apt. Pt. states reglan works well for her in the past. Rx for reglan given. To return for fever, uncontrollable vomiting, abd. pain or if concerned. Pt. understands and agrees with plan. - Diagnoses Differential Diagnosis: Positive: Bowel Obstruction, Constipation, Ectopic , Pancreatitis, Urinary Tract Infection Provider Diagnoses: Nausea & vomiting Discharge ED - Sign-Out/Discharge Documenting (check all that apply): Patient Departure - Discharge Plan Condition: Improved Disposition: HOME Prescriptions: Metoclopramide TAB* [Reglan TAB*] 10 mg PO Q6H PRN #12 tab PRN Reason: Nausea Patient Education Materials: Acute Nausea and Vomiting (ED) Referrals: Lam Grier DO [Primary Care Provider] - Additional Instructions: Call your surgeon today to schedule a close follow up appointment Reglan as needed for nausea Increase fluids Return to ER for fever, abdominal pain, uncontrollable vomiting, or if concerned - Billing Disposition and Condition Condition: IMPROVED Disposition: Home
[2019-03-08] MEDS ORDERED: Ondansetron INJ* 2 MG/ML VIAL IV ONE (06:14)
--- OUTSIDE RECORDS SUMMARY | 2019-03-08 06:46 | XMS REPORT | Continuity of Care Document ---
:1995 External Reference #:[id number] Author Name Skyler Johnson MD,FACS Address [address] [place] [id number] Care Team Providers Name Role Phone Parul ValverdeRPAC - Surgical Care Team Information [employer] Lam Grier DO - Family Medicine Care Team Information [employer] [phone] Problems Active Problems Provider Date Right lower quadrant pain Skyler Johnson MD,FACS Onset: 02/23/2019 Contusion of wrist Mireya Cobb PA Onset: 2015 Social History Type Date Description Comments Sex Unknown Tobacco Use Start: Unknown currently smokes 1/2 Pack Daily Cigarette Use Pack Years - 03 ETOH Use Denies alcohol use Tobacco Use Start: Unknown Light tobacco smoker (10 or fewer cigarettes/day) Allergies, Adverse Reactions, Alerts Active Allergies Reaction Severity Comments Date Naproxen 2015 Oranges 2015 Pineapple 2015 Penicillin 02/23/2019 Inactive Allergies NKDA 01/30/2009 Medications Active Medications SIG Qnty Indications Ordering Provider Date Clindamycin HCL 1 tablet by mouth 10caps R10.31 Skyler Johnson, 02/23/2019 300mg two times daily ,FACS Capsules for 5 days. take it in the middle of your meal Calcium 600 Unknown 600mg Tablets Hydroxyzine HCL Lam Grier DO 10mg Tablets take one capsule Unknown Tablets by mouth every day. Immunizations Description No Information Available Vital Signs Date Vital Result Comment 02/23/2019 11:15am Height 63.75 inches 5'3.75" Weight 96.12 lb BMI (Body Mass Index) 16.6 kg/m2 BSA (Body Surface Area) 1.43 m2 [place] body weight in kilograms 54 kg 2015 2:11pm BP Systolic Sitting Left Arm 103 mmHg BP Diastolic Sitting Left Arm 66 mmHg Heart Rate 72 /min Height 63.75 inches 5'3.75" Weight 98.00 lb BMI (Body Mass Index) 17.0 kg/m2 BSA (Body Surface Area) 1.44 m2 Results Test Date Facility Test Result H/L Range Note CBC 12/25/2018 [facility] White Blood 6.7 K/uL Normal 3.1-10.7 1 W/Automated [address] [place] [place] [address] [phone] Red Blood Count 5.07 M/uL Normal 3.90-5.40 Hemoglobin 16.0 gm/dL High 11.6-15.8 Hematocrit 45.0 % Normal 36.0-46.1 Mean Cell Volume 88.8 fl Normal 80.9-99.0 Mean Corpuscular HGB 31.6 pg Normal 25.9-32.7 Mean Corpuscular HGB Conc 35.6 g/dL High 30.8-34.3 Platelet Count 221 K/uL Normal 155-360 Red Cell Distri Width SD 38.5 fl Normal 36-47 Red Cell Distri Width %CV 12.0 % Normal 11.7-14.4 Mean Platelet Volume 9.0 fl Normal 8.9-12.4 Neut% 50.9 % Normal 40.4-72.8 Lymph % 34.1 % Normal 20.0-42.0 [place] % 6.8 % Normal 4.3-13.2 Eo% 7.1 % High 0.0-6.6 Bas% 0.8 % Normal 0.0-1.1 Immature Grans 0.3 % Normal 0.0-5.0 NRBC % 0.0 /100WBC < 10/ 100 WBC Neut# 3.39 K/uL Normal 1.8-7.0 Lymph # 2.27 K/uL Normal 1.0-4.0 [place] # 0.45 K/uL Normal 0.3-0.9 Eos # 0.47 K/uL Normal 0.0-0.5 Baso # 0.05 K/uL Normal 0.0-0.1 Immature Grans Absolute 0.02 K/uL NRBC # 0.00 K/uL Comprehensive 12/25/2018 [facility] Glucose 81 mg/dL Normal 74-106 Metabolic Panel [address] [place] [address] [phone] BUN 5 mg/dL Critical low 7-18 Creatinine 0.7 mg/dL Normal 0.6-1.3 Glom Filtration Rate, Estimate >60 mL/min >60 If >60 mL/min >60 2 BUN/Creat 7.1 ratio Sodium 140 mmol/L Normal 136-145 Potassium 3.9 mmol/L Normal 3.5-5.1 Chloride 108 mmol/L High 98-107 Carbon Dioxide 26 mmol/L Normal 21-32 Anion Gap 6 mEq/L Low 8-16 Calcium 8.9 mg/dL Normal 8.5-10.1 Total Protein 7.5 g/dL Normal 6.4-8.2 Albumin 4.0 g/dL Normal 3.4-5.0 Globulin 3.5 g/dL Normal 1.9-4.3 Alb/Glob 1.1 ratio Bilirubin,Total 0.3 mg/dL Normal 0.2-1.0 Sgot/Ast 16 U/L Normal 15-37 SGPT/Alt 22 U/L Normal 12-78 Alkaline Phosphatase 49 U/L Normal 45-117 Urine HCG 12/25/2018 [facility] Urine HCG NEGATIVE Negative 3 (Qualitative) [address] [facility] (Qualitative) [place] [address] [phone] Source: URINE, CLEAN CAT <SEE NOTE> 4 Ua RFX Micro & Culture 12/25/2018 [facility] Urine Color YELLOW Yellow II [address] [place] [address] [phone] Urine Clarity CLEAR Clear Urine Glucose - Dipstick NEGATIVE mg/dL Negative Urine Bilirubin - Dipstick NEGATIVE Negative Urine Ketone NEGATIVE mg/dL Negative Urine Specific [place] <= 1.005 Low 1.010-1.030 Urine Blood NEGATIVE Negative Urine PH 5.5 Low 6.5-7.5 Urine Protein - Dipstick NEGATIVE mg/dL Negative Urine Urobilinogen - Dipstick 0.2 E.U./dL Normal 0.2-1.0 Urine Nitrite - Dipstick NEGATIVE Negative Urine Leuk Esterase NEGATIVE Negative Source: URINE, CLEAN CAT <SEE NOTE> 5 1 ABD/L SIDE/BACK PAIN 2 Note: Persistent reduction for 3 months or more in an eGFR <60 mL/min/1.73 m2 defines CKD. Patients with eGFR values >/=60 mL/min/1.73 m2 may also have CKD if evidence of persistent proteinuria is present. The original MDRD equation for estimated GFR is not valid for patients less than 18 years of age. Additional information may be found at www.kdoqi.org. 3 FIRST MORNING SPECIMENS GENERALLY CONTAIN THE HIGHEST CONCENTRATION OF HCG AND ARE RECOMMENDED FOR EARLY DETECTION OF . Method: Quidel QuickVue One-Step Immunoassay 4 URINE, CLEAN CATCH 5 URINE, CLEAN CATCH Procedures Date Code Description Status 02/15/2019 70262 Laparoscopy, surgical, appendectomy Completed Medical Devices Description No Information Available Encounters Type Date Location Provider Dx Diagnosis Office Visit 02/15/2019 Operating Room Skyler Johnson, R10.31 Right lower 3:00p ,FACS quadrant pain D72.829 Elevated white blood cell count, unspecified Assessments Date Code Description Provider 02/23/2019 R10.31 Right lower quadrant pain Skyler Johnson MD,FACS 02/15/2019 R10.31 Right lower quadrant pain Skyler Johnson MD,FACS 02/15/2019 D72.829 Elevated white blood cell count, Skyler Johnson MD,FACS unspecified Plan of Treatment 02/23/2019 - Skyler Johnson MD,FACSR10.31 Right lower quadrant painNew Medication:Clindamycin HCL 300 mg - 1 tablet by mouth two times daily for 5 days. take it in the middle of yourmealComments:s/p laparoscopic appendectomy, her preoperative complaints have resolved, has minimal erythema around two of the 3 incisions. no abscess, could be cellulitis/ecchymosis. will give her a short course oforal antibiotics. pathology report was discussed. RTC prn. Functional Status Description No Information Available Mental Status Description No Information Available Referrals Description No Information Available
[2019-03-08 06:56] LABS: ABS Basophils 0.1 10^3/ul (0-0.2); ABS Eosinophils 0.5 10^3/ul (0-0.6); ABS Lymphocytes 1.8 10^3/ul (1.0-4.8); ABS Monocytes 0.6 10^3/ul (0-0.8); ABS Neutrophils 6.7 10^3/ul (1.5-7.7); Hematocrit 45 % (35-47); Lymphocyte % 18.2 %; Mean Corpuscular HGB Conc 36 g/dL (31-36); Mean Corpuscular Hemoglobin 32 pg (27-31); Mean Corpuscular Volume 91 fL (80-97); Mean Platelet Volume 7.4 fL (7.4-10.4); Platelet Count 235 10^3/uL (150-450); Red Blood Count 4.97 10^6 /uL (3.70-4.87); Red Cell Distribution Width 13 % (10-15); White Blood Count 9.6 10^3/uL (3.5-10.8)
[2019-03-08 06:59] LABS: Albumin 4.2 g/dL (3.2-5.2); Anion Gap 7 mmol/L (2-11); CO2 Carbon Dioxide 26 mmol/L (22-32); Calcium 10.5 mg/dL (8.6-10.3); Chloride 107 mmol/L (101-111); Potassium 3.7 mmol/L (3.5-5.0); Sodium 140 mmol/L (135-145)
[2019-03-08 07:05] LABS: ALT 14 U/L (7-52); AST 15 U/L (13-39); Albumin/Globulin Ratio 1.8 (1-3); Alkaline Phosphatase 48 U/L (34-104); BUN/Creatinine Ratio 10.4 (8-20); Blood Urea Nitrogen 7 mg/dL (6-24); C Reactive Protein < 1.00 mg/L (<8.01); EGFR African American 133.2 (>60); EGFR Non-African American 110.1 (>60); Globulin 2.4 g/dL (2-4); Glucose 104 mg/dL (70-100); Total Protein 6.6 g/dL (6.4-8.9)
[2019-03-08 07:11] LABS: Urine Appearance Cloudy; Urine Bacteria Absent (Absent); Urine Bilirubin Negative (Negative); Urine Blood 3+ (Negative); Urine Color Yellow; Urine Glucose Negative (Negative); Urine Ketones Negative (Negative); Urine Nitrite Negative (Negative); Urine Protein Negative (Negative); Urine Red Blood Cell Absent (Absent); Urine Specific Gravity 1.005 (1.010-1.030); Urine Squamous Epithelial Cell Present (Absent); Urine Urobilinogen Negative (Negative); Urine White Blood Cell Absent (Absent)
[2019-03-08 09:39] VITALS: BP 111/74
[2019-03-08 10:29] LABS: HIV 4th Generation Nonreactive (Nonreactive)
== END 2019-03-08 09:25 | disposition home or self-care (01) ==
LOC: ED 05:46
DX: R11.2 Nausea with vomiting, unspecified (principal); Z90.89 Acquired absence of other organs; Z88.6 Allergy status to analgesic agent; Z91.030 Bee allergy status; Z91.011 Allergy to milk products; Z88.0 Allergy status to penicillin; Z91.018 Allergy to other foods; F17.210 Nicotine dependence, cigarettes, uncomplicated
CPT/HCPCS: 36415; 80053; 81003; 81015; 83690; 84702; 85025; 86140; 87389; 96361; 96374; 99283; J2405

== ENCOUNTER 2019-05-14 21:08 | Emergency (ER) | payer OTHER ==
[2019-05-14] MEDS ORDERED: Ketorolac INJ* 30 MG/ML 1 ML VIAL IV PUSH ONE (21:15)
[2019-05-14] MEDS ORDERED: Ondansetron INJ* 2 MG/ML VIAL IV ONE (21:15)
--- NOTE | 2019-05-14 21:16 | ED ---
Abdominal Pain/Female - HPI Summary HPI Summary: Patient is a 23 y/o F presenting to [facility] via EMS with complaints of left-sided abdominal pain. She states that she has been dealing with chronic nausea and this abdominal pain for the past few months. Pain worsened tonight, 05/14/19 with the patient rating her pain a 10/10. Palpation aggravates Sx. She states that she has had an appendectomy in January 2019, but patient did not experience relief in Sx with this procedure. Patient has been evaluated by GI specialist but states that the GI specialist was unsure what could be causing the patient's pain. Testing for Crohn's and Celiac's disease were negative. She states that she has received multiple US and CT scans. Patient does note that one imaging study revealed the presence of a cyst by her bowel. It was not removed as it has ruptured. She claims there was fecal matter noted at this area. Patient had been prescribed medication for GERD with no relief in Sx. She states that she takes Zofran daily. Home medications and allergies are reviewed. - History of Current Complaint Stated Complaint: LEFT SIDE ABD PAIN PER EMS Hx Obtained From: Patient Hx Last Menstrual Period: 02/09/19 Onset/Duration: Lasting Weeks, Still Present, Worse Since Timing: Weeks Severity Currently: Severe Pain Intensity: 10 Pain Scale Used: 0-10 Numeric Location: Other - left abdomen Aggravating Factor(s): Other: - palpation Associated Signs and Symptoms: Positive: Nausea Allergies/Adverse Reactions: Allergies Allergy/AdvReac Type Severity Reaction Status Date / Time Penicillins Allergy Severe Rash Verified 02/10/19 03:27 bee venom protein (honey bee) Allergy Swelling Verified 02/10/19 03:27 lactose Allergy GI Upset Verified 02/10/19 03:27 naproxen Allergy Hives Verified 02/10/19 03:27 orange Allergy Blisters Verified 02/10/19 03:27 Home Medications: Home Medications Famotidine TAB* [Pepcid 20 MG TAB*] 1 tab PO BID 05/14/19 [History Confirmed ] Ondansetron ODT TAB* [Zofran 4 MG Odt TAB*] 4 mg PO Q8H PRN 05/14/19 [History Confirmed 05/14/19] Polyethylene Glycol 3350* [Miralax*] 17 gm PO DAILY 05/14/19 [History Confirmed 05/14/19] Vitamin TAB* 1 tab PO DAILY 05/14/19 [History Confirmed 05/14/19] PMH/Surg Hx/FS Hx/Imm Hx Endocrine/Hematology History: Denies: Hx Diabetes Cardiovascular History: Denies: Hx Hypertension Respiratory History: Reports: Hx Asthma - Excerise Induced History: Reports: Other Problems/Disorders - hx ovarian cysts, PCOS Denies: Hx Renal Disease - Surgical History Surgery Procedure, Year, and Place: RIGHT BREAT BIOPSY, ear tubes,. states "balloon placed in LEFT lung as baby", WISDOM TEETH EXTRACTION, OTHER DENTAL EXTRACTION - Family History Known Family History: Positive: Hypertension - Grandmother, Diabetes - Grandmother - Social History Alcohol Use: None Hx Substance Use: No Substance Use Type: Reports: None Hx Tobacco Use: Yes Smoking Status (MU): Light Every Day Tobacco Smoker Type: Cigarettes Amount Used/How Often: 10 CIG/DAY Length of Time of Smoking/Using Tobacco: started at age 15 Review of Systems Negative: Fever - on vitals, temp is 99.3 F Positive: Abdominal Pain, Nausea All Other Systems Reviewed And Are Negative: Yes Physical Exam - Summary Physical Exam Summary: Appearance: Well-appearing, Well-nourished, lying in bed comfortably Skin: Warm, dry, no obvious rash Eyes: sclera anicteric, no conjunctival pallor ENT: mucous membranes moist, pharynx appears normal Neck: Supple, nontender Respiratory: Clear to auscultation, no signs of respiratory distress Cardiovascular: Normal S1, S2. No murmurs. Normal distal pulses in tibial and radial bilaterally. Abdomen: There is tenderness at left abdomen without peritoneal signs. Soft, normal active bowel sounds present Musculoskeletal: Normal, Strength/ROM Intact Neurological: A&Ox3, awake and alert, mentation is normal, speech is fluent and appropriate Psychiatric: affect is normal, does not appear anxious or depressed Triage Information Reviewed: Yes Vital Signs Reviewed: Yes Procedures - Sedation Patient Received Moderate/Deep Sedation with Procedure: No Diagnostics - Laboratory Result Diagrams: 05/14/19 21:29 05/14/19 21:26 Lab Statement: Any lab studies that have been ordered have been reviewed, and results considered in the medical decision making process. Abdominal Pain Fem Course/Dx - Course Course Of Treatment: Patient is a 23 y/o F presenting to [facility] via EMS with complaints of left-sided abdominal pain. She states that she has been dealing with chronic nausea and this abdominal pain for the past few months. Pain worsened tonight, 05/14/19 with the patient rating her pain a 10/10. Palpation aggravates Sx. She states that she has had an appendectomy in January 2019, but patient did not experience relief in Sx with this procedure. Patient has been evaluated by GI specialist but states that the GI specialist was unsure what could be causing the patient's pain. Testing for Crohn's and Celiac's disease were negative. She states that she has received multiple US and CT scans. Patient does note that one imaging study revealed the presence of a cyst by her bowel. It was not removed as it has ruptured. She claims there was fecal matter noted at this area. Patient had been prescribed medication for GERD with no relief in Sx. She states that she takes Zofran daily. There is tenderness at left abdomen without peritoneal signs. Bloodwork was obtained and within normal limits with exception of RBC 4.99, Hgb 16.2, MCH 32, MPV 7.1. UA showed 1+ bacteria, 1+ leukocyte esterase, squamous epith cells presents, and trace WBC and RBC. During ED course, patient received Zofran 8 mg IV, Toradol 10 mg IV, and Levaquin 500 mg PO. Patient was discharged to home with Levaquin and Zofran prescription and PCP followup. - Diagnoses Provider Diagnoses: Pyelonephritis Discharge ED - Sign-Out/Discharge Documenting (check all that apply): Patient Departure - discharge - Discharge Plan Condition: Good Disposition: HOME Prescriptions: Levofloxacin TAB* [Levaquin TAB*] 500 mg PO DAILY #9 tab Ondansetron ODT TAB* [Zofran 4 MG Odt TAB*] 8 mg PO Q6H PRN #20 tab.odt PRN Reason: Nausea Patient Education Materials: Kidney Infection (ED) Referrals: Lam Grier DO [Doctor of Osteopathy] - Additional Instructions: It can take several days for the pain from a kidney infection to improve, so make sure you have enough pain medicine and nausea medicine from the pharmacy. - Billing Disposition and Condition Condition: GOOD Disposition: Home - Attestation Statements Document Initiated by Scribe: Yes Documenting Scribe: HEMALATHA MORA Provider For Whom Marge is Documenting (Include Credential): ALEXEY RAYGOZA MD Scribe Attestation: I, HEMALATHA MORA, scribed for ALEXEY RAYGOZA MD on 05/15/19 at 0536. Scribe Documentation Reviewed: Yes Provider Attestation: The documentation as recorded by the scribeHEMALATHA accurately reflects the service I personally performed and the decisions made by me, ALEXEY RAYGOZA MD Status of Scribe Document: Viewed
--- OUTSIDE RECORDS SUMMARY | 2019-05-14 21:16 | XMS REPORT | Summary of Care ---
:1995 Author Organization [facility] Address [address] [facility] [place] [address] Care Team Providers Name Role Phone Kylie Guerrero Primary Care Provider Reason for Visit Reason Comments Abdominal Pain New pt. referred by Dr. Grier for abdominal pain & nausea. Encounter Details Date Type Department Care Team Description 05/02/2019 Office Visit Dago Wise Generalized abdominal pain ( Primary Dx); Gastroenterology/Hepa Vaishali Quinn NP Change in bowel habits; tology [facility] Family history of Crohn's disease; [address] [place] [address] [place] [address] [phone] Allergies Active Allergy Reactions Severity Noted Date Comments Amoxicillin Hives 06/07/2018 Bee Cardiac Reaction 06/07/2018 Penicillins Hives 06/07/2018 documented as of this encounter (statuses as of 05/02/2019) Medications Medication Sig Dispensed Refills Start Date End Date Status polyethylene glycol Take 17 g by 30 Each 0 04/08/2019 Active (MIRALAX) Oral Powder mouth DAILY NEEDED (constipation). hydrOXYzine HCL Take 1 Tab by 60 Tab 0 04/18/2019 Active (ATARAX) 10 MG Oral Tab mouth EVERY EIGHT HOURS NEEDED (anxiety). ondansetron (ZOFRAN Take 1 Tab by 36 Tab 0 04/18/2019 Active ODT) 4 MG Oral TABLET mouth EVERY EIGHT DISPERSIBLEIndications: HOURS NEEDED Nausea (nausea). Take by mouth. 0 Active Btansnpt-Nxc-Lb-FA ( VITAMINS PO) famotidine (PEPCID) 20 Take 1 Tab by 60 Tab 0 05/02/2019 Active MG Oral Tab mouth TWICE DAILY. documented as of this encounter (statuses as of 05/02/2019) Active Problems Problem Noted Date Papanicolaou smear of cervix with atypical squamous cells of undetermined significance (ASC-US) Overview: HPV neg. hence 3 year pap. this was done september 2017 documented as of this encounter (statuses as of 05/02/2019) Immunizations Name Administration Dates Next Due DTAP Vaccine 01/28/2001, 03/26/1998, 03/21/1997, 01/16/1997, 1996 HIB 4 Dose Schedule 01/01/1998, 03/21/1997, 01/16/1997, 1996 HPV 9 11/04/2017 Hepatitis A Vaccine Peds 11/27/2006, 01/16/2006 Hepatitis B Vaccine 03/21/1997, 1996, 1996 Human Papillomavirus 11/04/2017, 12/17/2009 Influenza (IM) Preservative Free 07/19/2018 MENINGOCOCCAL CONJUGATE VACCINE 12/17/2009 MMR 01/28/2001, 01/01/1998 PNEUMOCOCCAL POLYSACCHARIDE VACCINE 07/19/2018 Pneumococcal Conjugate Vaccine 01/28/2001 Polio - Inactivated Vaccine 01/28/2001, 03/21/1997, 01/16/1997, 1996 TDAP Vaccine 02/20/2009 Varicella Vaccine Live 12/17/2009, 01/16/2006, 09/21/1997 documented as of this encounter Social History Tobacco Use Types Packs/Day Years Used Date Current Every Day Smoker 0.5 7 Smokeless Tobacco: Never Used Comments: now down to 0.25 pack/day Alcohol Use Drinks/Week oz/Week Comments Not Currently Sex Assigned at Date Recorded Not on file Job Start Date Occupation Industry Not on file Not on file Not on file Travel History Travel Start Travel End No recent travel history available. documented as of this encounter Last Filed Vital Signs Vital Sign Reading Time Taken Comments Blood Pressure 94/64 05/02/2019 12:36 PM EST Pulse 72 05/02/2019 12:36 PM EST Temperature 37.1 05/02/2019 12:36 PM EST C (98.8 F) Respiratory Rate - - Oxygen Saturation - - Inhaled Oxygen Concentration - - Weight 43.5 kg (96 lb) 05/02/2019 12:36 PM EST Height 167.6 cm (5' 6") 05/02/2019 12:36 PM EST Body Mass Index 15.49 05/02/2019 12:36 PM EST documented in this encounter Patient Instructions Patient InstructionsVaishali Wise NP - 05/02/2019 12:40 PM EST1. Additional labs 2. Start Pepcid twice daily 3. Sign release to obtain CT image report from [place] 4. Stool testing as discussed 5. Follow up in 2 weeks Thank you for choosing the [facility] for your needs today! -Vaishali Wise N.PMajor , Please call if you need to cancel or change your appt. time. Thank you for choosing [facility] for your health care needs, and for consulting with [facility] today. You may receive a survey following this visit, or after an upcoming hospital stay. As easy as it is to feel overloaded with surveys, we are required to send them out randomly and they do provide important feedback so that we may serve your needs in the best way. Please do take the few minutes required to complete the survey if you receive one. We get them too, after seeing the doctor, and they only take a few minutes to complete. documented in this encounter Progress Notes Vaishali Wise NP - 05/02/2019 12:40 PM EST PATIENT: Yayo Garcia : 1995 DATE OF SERVICE: 05/02/2019 REFERRING PRACTITIONER: Lam Grier PRIMARY CARE PROVIDER: Kylie Guerrero CHIEF COMPLAINT: Chief Complaint Patient presents with Abdominal Pain New pt. referred by Dr. Grier for abdominal pain & nausea. Subjective HISTORY OF PRESENT ILLNESS: Yayo Garcia is a 23-y.o. female who presents for a consultation with abdominal pain. Pain is located in the right upper quadrant, left upper quadrant without radiation. The pain is described as burning and pressure, and is 10/10 in intensity. Onset was vague problem is longstanding. Has had longstanding difficulty maintaining weight, now with some weight loss. Has had fluctuating bowel habits for several years. Symptoms have been gradually worsening. Aggravating factors: eating. Alleviating factors: none. Associated symptoms: bloating and weight loss. The patient denies anorexia, arthralgias, chills, fever, frequency, hematochezia , hematemesis, hematuria, malnutrition, melena and myalgias. Past Medical History: Diagnosis Date Asthma exercise induced Papanicolaou smear of cervix with atypical squamous cells of undetermined significance (ASC-US) HPV neg. hence 3 year pap. this was done september 2017 Past Surgical History: Procedure Laterality Date CHEST TUBE INSERTION She says she had left chest surgery for a collapsed lung as an . MYRINGOTOMY Family History Problem Relation Age of Onset Breast Cancer Mother 30s Cancer Maternal Grandmother thyroid Breast Cancer Maternal Grandmother 24 dx at an early age ? Cancer Father "spider" cancer (Telangiectatic) Diabetes Paternal Grandmother Cancer Paternal Grandmother not sure what type of cancer Current Outpatient Medications Medication Sig famotidine (PEPCID) 20 MG Oral Tab Take 1 Tab by mouth TWICE DAILY. hydrOXYzine HCL (ATARAX) 10 MG Oral Tab Take 1 Tab by mouth EVERY EIGHT HOURS NEEDED (anxiety). ondansetron (ZOFRAN ODT) 4 MG Oral TABLET DISPERSIBLE Take 1 Tab by mouth EVERY EIGHT HOURS NEEDED (nausea). polyethylene glycol (MIRALAX) Oral Powder Take 17 g by mouth DAILY NEEDED (constipation). Mbjvuwcz-Ohv-Ah-FA ( VITAMINS PO) Take by mouth. No current facility-administered medications for this visit. Allergies Allergen Reactions Amoxicillin Hives Bee Cardiac Reaction Penicillins Hives Social History Socioeconomic History Marital status: Spouse name: Not on file Number of children: Not on file Years of education: Not on file Highest education level: Not on file Occupational History Not on file Social Needs Financial resource strain: Not on file Food insecurity: Worry: Not on file Inability: Not on file Transportation needs: Medical: Not on file Non-medical: Not on file Tobacco Use Smoking status: Current Every Day Smoker Packs/day: 0.50 Years: 7.00 Pack years: 3.50 Smokeless tobacco: Never Used Tobacco comment: now down to 0.25 pack/day Substance and Sexual Activity Alcohol use: Not Currently Drug use: Not Currently Sexual activity: Not on file Lifestyle Physical activity: Days per week: Not on file Minutes per session: Not on file Stress: Not on file Relationships Social connections: Talks on phone: Not on file Gets together: Not on file Attends shinto service: Not on file Active member of club or organization: Not on file Attends meetings of clubs or organizations: Not on file Relationship status: Not on file Intimate partner violence: Fear of current or ex partner: Not on file Emotionally abused: Not on file Physically abused: Not on file Forced sexual activity: Not on file Other Topics Concern Not on file Social History Narrative No kids Work: schooling online REVIEW OF SYSTEMS: All remaining review of systems was negative except for as noted in the history of present illness/subjective. Objective PHYSICAL EXAMINATION: VITALS: BP 94/64 | Pulse 72 | Temp 98.8 F (37.1 C) | Ht 5' 6" ( 1.676 m) | Wt 96 lb (43.5 kg) | BMI 15.49 kg/m Body mass index is 15.49 kg/m. GENERAL: alert, oriented, no acute distress. HEENT: No scleral icterus, MMM Psych: Affect normal Neck: no lymphadenopathy LUNGS: clear to auscultation bilaterally. HEART: regular rhythm, no murmurs, no gallops, no rubs. ABDOMEN: general exam: soft, non-tender, non-distended, without masses or organomegaly, normal active bowel sounds, Núñez's sign negative. Extrmities: no edema Skin: clear Neuro: gait normal, a&o x 3 RECTAL: exam deferred. IMPRESSION: ICD-9-CM ICD-10-CM 1. Generalized abdominal pain 789.07 R10.84 CELIAC DISEASE PANEL 2. Change in bowel habits 787.99 R19.4 CALPROTECTIN, STOOL HELICOBACTER PYLORI ANTIGEN, STOOL 3. Family history of Crohn's disease V18.59 Z83.79 4. Family history of celiac disease V18.59 Z83.79 Plan PLAN: Patient Instructions 1. Additional labs 2. Start Pepcid twice daily 3. Sign release to obtain CT image report from [facility] 4. Stool testing as discussed 5. Follow up in 2 weeks Thank you for choosing the [facility] for your needs today! -Vaishali Wise N.P. , Please call if you need to cancel or change your appt. time. Thank you for choosing [facility] for your health care needs, and for consulting with [facility]. You may receive a survey following this visit, or after an upcoming hospital stay. As easy as it is to feel overloaded with surveys, we are required to send them out randomly and they do provide important feedback so that we may serve your needs in the best way. Please do take the few minutes required to complete the survey if you receive one. We get them too, after seeing the doctor, and they only take a few minutes to complete. Author: Vaishali Wise NP 05/02/2019 13:17 documented in this encounter Plan of Treatment Date Type Specialty Care Team Description 05/06/2019 Ancillary Procedure Radiology 05/16/2019 Office Visit Gastroenterology Vaishali Wise NP [address] [facility] [place] [address] [phone] 05/19/2019 Office Visit Family Practice Kylie Guerrero MD [address] [place] [address] [phone] Name Type Priority Associated Diagnoses Date/Time CELIAC DISEASE PANEL Lab Routine Generalized abdominal pain 05/02/2019 1: 19 PM EST CELIAC DISEASE PANEL Lab Routine Generalized abdominal pain 05/02/2019 1: 19 PM EST Name Type Priority Associated Diagnoses Order Schedule CELIAC DISEASE PANEL Lab Routine Generalized abdominal Expected: 05/02/2019 pain (Approximate), Expires: 05/16/2019 CALPROTECTIN, STOOL Lab Routine Change in bowel habits Expected: 05/02/2019 (Approximate), Expires: 11/01/2019 HELICOBACTER PYLORI Lab Routine Change in bowel habits Expected: 05/02/2019 ANTIGEN, STOOL (Approximate), Expires: 05/16/2019 Health Maintenance Due Date Last Done Comments CHLAMYDIA SCREENING 1995 DEPRESSION SCREENING 2008 INFLUENZA VACCINE (#1) 2019 07/19/2018 PAP SMEAR 09/22/2020 Postponed from 2017 (Other) MENINGOCOCCAL VACCINE IMM Aged Out 12/17/2009 No longer eligible based on patient's age to complete this topic HPV IMMUNIZATION SERIES Completed 11/04/2017, 11/04/2017, 12/17/2009 HIV SCREENING Completed 06/07/2018 PNEUMOCOCCAL 0-64 YRS Completed 07/19/2018, 01/28/2001 documented as of this encounter Results Not on filedocumented in this encounter Visit Diagnoses Diagnosis Generalized abdominal pain - Primary Abdominal pain, generalized Change in bowel habits Other symptoms involving digestive system Family history of Crohn's disease Family history of other digestive disorders Family history of celiac disease Family history of other digestive disorders documented in this encounter documented as of this encounter
[2019-05-14 21:39] LABS: ABS Basophils 0.1 10^3/ul (0-0.2); ABS Eosinophils 0.6 10^3/ul (0-0.6); ABS Lymphocytes 1.6 10^3/ul (1.0-4.8); ABS Monocytes 0.6 10^3/ul (0-0.8); ABS Neutrophils 3.5 10^3/ul (1.5-7.7); Eosinophil % 9.1 %; Hematocrit 45 % (35-47); Hemoglobin 16.2 g/dL (12.0-16.0); Lymphocyte % 25.1 %; Mean Corpuscular HGB Conc 36 g/dL (31-36); Mean Corpuscular Hemoglobin 32 pg (27-31); Mean Corpuscular Volume 91 fL (80-97); Mean Platelet Volume 7.1 fL (7.4-10.4); Nucleated Red Blood Cells % 0.6; Platelet Count 195 10^3/uL (150-450); Red Blood Count 4.99 10^6 /uL (3.70-4.87); Red Cell Distribution Width 13 % (10-15); White Blood Count 6.3 10^3/uL (3.5-10.8)
[2019-05-14 21:42] LABS: Urine Appearance Cloudy; Urine Bilirubin Negative (Negative); Urine Blood Negative (Negative); Urine Color Yellow; Urine Glucose Negative (Negative); Urine Ketones Negative (Negative); Urine Nitrite Negative (Negative); Urine Protein Negative (Negative); Urine Specific Gravity 1.005 (1.010-1.030); Urine Urobilinogen Negative (Negative)
[2019-05-14 21:43] LABS: Urine Bacteria 1+ (Absent); Urine Red Blood Cell Trace(0-2/hpf) (Absent); Urine Squamous Epithelial Cell Present (Absent); Urine White Blood Cell Trace(0-5/hpf) (Absent)
[2019-05-14 21:54] LABS: ALT 8 U/L (7-52); AST 14 U/L (13-39); Albumin 4.1 g/dL (3.2-5.2); Albumin/Globulin Ratio 1.5 (1-3); Alkaline Phosphatase 42 U/L (34-104); Anion Gap 5 mmol/L (2-11); BUN/Creatinine Ratio 13.5 (8-20); Blood Urea Nitrogen 10 mg/dL (6-24); C Reactive Protein < 1.00 mg/L (<8.01); CO2 Carbon Dioxide 26 mmol/L (22-32); Calcium 9.2 mg/dL (8.6-10.3); Chloride 108 mmol/L (101-111); EGFR African American 118.7 (>60); EGFR Non-African American 98.1 (>60); Globulin 2.8 g/dL (2-4); Glucose 92 mg/dL (70-100); Potassium 3.5 mmol/L (3.5-5.0); Sodium 139 mmol/L (135-145); Total Protein 6.9 g/dL (6.4-8.9)
[2019-05-14 22:01] LABS: HCG Pregnancy < 0.60 mIU/mL
[2019-05-14] MEDS ORDERED: Levofloxacin TAB* 500 MG PO ONE (22:14)
[2019-05-14 22:46] VITALS: BP 115/55
== END 2019-05-14 22:43 | disposition home or self-care (01) ==
LOC: ED 21:08
DX: N10 Acute pyelonephritis (principal); R11.0 Nausea; K21.9 Gastro-esophageal reflux disease without esophagitis; Z90.89 Acquired absence of other organs; Z88.6 Allergy status to analgesic agent; Z91.030 Bee allergy status; Z91.011 Allergy to milk products; Z88.0 Allergy status to penicillin; Z91.018 Allergy to other foods; F17.210 Nicotine dependence, cigarettes, uncomplicated
CPT/HCPCS: 36415; 80053; 81003; 81015; 83690; 84702; 85025; 86140; 87086; 96374; 96375; 99283; J1885; J2405

== ENCOUNTER 2021-09-16 13:32 | Inpatient (IN) ==
[2021-09-16 14:30] LABS: ABS Basophils 0.1 10^3/ul (0-0.2); ABS Eosinophils 0.5 10^3/ul (0-0.6); ABS Lymphocytes 2.5 10^3/ul (1.0-4.8); ABS Monocytes 0.7 10^3/ul (0-0.8); ABS Neutrophils 10.4 10^3/ul (1.5-7.7); Eosinophil % 3.6 %; Hematocrit 35 % (35-47); Hemoglobin 12.1 g/dL (12.0-16.0); Lymphocyte % 17.8 %; Mean Corpuscular HGB Conc 35 g/dL (31-36); Mean Corpuscular Hemoglobin 31 pg (27-31); Mean Corpuscular Volume 89 fL (80-97); Platelet Count 419 10^3/uL (150-450); Red Blood Count 3.91 10^6 /uL (3.70-4.87); Red Cell Distribution Width 14 % (10-15); White Blood Count 14.2 10^3/uL (3.5-10.8)
[2021-09-16] MEDS ORDERED: Lactated Ringers 1000 ml BAG 1,000 ML IV ONE ×2 (14:40→21:03)
[2021-09-16] MEDS ORDERED: ceFAZolin 2 GM in NS PREMIX 2 GM/100 ML BAG IVPB ONE (14:40)
[2021-09-16] MEDS ORDERED: Buffered Lidocaine 1% SYRIN 1 ml INTRADERM ONE (14:40)
[2021-09-16] MEDS ORDERED: Lactated Ringers 1000 ml BAG 1,000 ML IV SCH ×2 (15:00→22:00)
[2021-09-16] MEDS ORDERED: Oxytocin in LR 20 UNITS/1,000 ML BAG IVPB SCH (15:00)
[2021-09-16 15:24] LABS: Urine Benzodiazepine Screen None Detected (None Detect); Urine Cannabinoids Screen None Detected (None Detect); Urine Opiates Screen None Detected (None Detect)
[2021-09-16] MEDS: Nicotine PATCH 21 MG/24 HR PATCH TRANSDERM SCH (20:02)
[2021-09-16] MEDS ORDERED: OBEPIDURAL (200 ML) 200 ML EPIDURAL ONE (20:35)
[2021-09-16] MEDS ORDERED: Phenylephrine 40 mcg/mL 10mL (400mcg) SYRINGE IV PUSH PRN ×2 (21:03)
[2021-09-16] MEDS ORDERED: Sodium Citrate/Citric Acid LIQ 15 ML UDC PO PRN (21:03)
[2021-09-16] MEDS ORDERED: OBEPIDURAL (200 ML) 200 ML EPIDURAL SCH (22:00)
[2021-09-16 22:29] LABS: Urine Benzodiazepine Screen None Detected (None Detect); Urine Cannabinoids Screen None Detected (None Detect); Urine Opiates Screen None Detected (None Detect)
[2021-09-16] MEDS ORDERED: ceFAZolin VIAL 1 GM in NS 0.9% 50 ML 50 ML IVPB SCH (23:00)
[2021-09-17] MEDS ORDERED: Glycerin ADULT 2.4 gm SUPP PR PRN (00:44)
[2021-09-17] MEDS ORDERED: Witch Hazel PAD JAR TOPICAL PRN (00:44)
[2021-09-17] MEDS ORDERED: Dibucaine 1% OINT 28.35 GM TUBE PR PRN (00:44)
[2021-09-17] MEDS ORDERED: Lactated Ringers 1000 ml BAG 1,000 ML IV SCH (01:00)
[2021-09-17] MEDS ORDERED: Oxytocin in LR 20 UNITS/1,000 ML BAG IVPB SCH (01:00)
[2021-09-17] MEDS ORDERED: Lidocaine 1% w EPI 1:200,000 SDV 30 ML VIAL ONE (05:10)
[2021-09-17] MEDS ORDERED: Lidocaine 1% VIAL 10 MG/ML VIAL ONE (05:11)
[2021-09-17] MEDS: Nicotine PATCH 21 MG/24 HR PATCH TRANSDERM SCH (15:45)
[2021-09-18 07:33] LABS: ABS Basophils 0.1 10^3/ul (0-0.2); ABS Eosinophils 0.8 10^3/ul (0-0.6); ABS Monocytes 0.7 10^3/ul (0-0.8); ABS Neutrophils 7.7 10^3/ul (1.5-7.7); Eosinophil % 6.4 %; Hematocrit 36 % (35-47); Hemoglobin 12.3 g/dL (12.0-16.0); Lymphocyte % 24.4 %; Mean Corpuscular HGB Conc 34 g/dL (31-36); Mean Corpuscular Hemoglobin 31 pg (27-31); Mean Corpuscular Volume 90 fL (80-97); Mean Platelet Volume 6.6 fL (7.4-10.4); Platelet Count 387 10^3/uL (150-450); Red Blood Count 4.02 10^6 /uL (3.70-4.87); Red Cell Distribution Width 14 % (10-15); White Blood Count 12.3 10^3/uL (3.5-10.8)
[2021-09-18] MEDS: Nicotine PATCH 21 MG/24 HR PATCH TRANSDERM SCH (08:55)
[2021-09-19] MEDS ORDERED: medroxyPROGESTERone ACETATE 150 MG/ML VIAL IM ONE (08:00)
[2021-09-19] MEDS: Nicotine PATCH 21 MG/24 HR PATCH TRANSDERM SCH (08:02)
[2021-09-19 09:27] VITALS: BP 107/56
== END 2021-09-19 10:30 | disposition home or self-care (01) | DRG 560 ==
LOC: MCHOBOUT 13:32 → MCHOB 13:48
PROVIDERS: ADMIT Obstetrics & Gynecology; ATTEND Obstetrics & Gynecology